=== PATIENT | female | born 1965 | race Caucasian/White ===

== ENCOUNTER 2018-06-18 05:48 | Day surgery (SDC) | payer OTHER ==
[2018-06-17 08:42] VITALS: BMI 34.4
[~2018-06-18] VITALS: Ht 165.1 cm; Wt 81.9 kg
[2018-06-18] VITALS (15 sets, daily range): BP systolic 103–131; BP diastolic 61–88; PULSE 72–94; RESP 14–20; Ht 165.1 cm; Wt 81.9 kg
[2018-06-18] MEDS ORDERED: SOD CHLORIDE 0.9% 1,000 ML IV SCH (06:00)
[2018-06-18] MEDS ORDERED: CEFAZOLIN 2 GM/50 ML (PMX) 50 ML IVPB SCH (06:00)
[2018-06-18] MEDS ORDERED: ACETAMINOPHEN 500 MG TAB PO ONE (06:00)
[2018-06-18] MEDS ORDERED: EPHEDrine SULFATE 50 MG/5 ML SYG ONE (07:00)
[2018-06-18] MEDS ORDERED: PROPOFOL 200 MG INJ ONE (07:00)
--- NOTE | 2018-06-18 07:01 | PREAC ---
Date/Time of Note Date/Time of Note DATE: 06/18/18 TIME: 07:00 Anesthesia Eval and Record Evaluation Time Pre-Procedure Interview DATE: 06/18/18 TIME: 07:00 Age 53 Sex female NPO: 8 hrs Preoperative diagnosis L breast CA Planned procedure L needle loc partial mastectomy & axillary dissection Past Medical History Past Medical History: Includes GI: Obesity Surgery & Anesthesia Issues No known issue Meds Anticoagulation: No Beta Roseanne within 24 hr: No Reason Beta Roseanne not given: Pt. not on B-Roseanne Current Medications Cefazolin Sodium/ Dextrose 50 ml @ 100 mls/hr PRE-OP IVPB ; Start 06/18/18 at 06:00 Sodium Chloride 1,000 ml @ 75 mls/hr [id number] IV ; Start 06/18/18 at 06:00; Stop 06/18/18 at 18:00 Meds reviewed: Yes Allergies Coded Allergies: No Known Allergy (Unverified , 06/17/18) Allergies Reviewed: Yes Labs/Studies Labs Reviewed: Reviewed by anesthesiologist test: Negative Studies: ECG (nsr), CXR (nad) Pre-procedure Exam Airway: Adequate mouth opening, Adequate thyromental dist Mallampati: Mallampati II Teeth: Normal Lung: Normal Heart: Normal ASA Physical Status ASA physical status: 2 Emergency: None Planned Anesthetic General/MAC: LMA Pre-operative Attestations Prior to commencing anesthesia and surgery, the patient was re-evaluated, there was verification of: *The patient's identity *The results of appropriate recent lab work and preoperative vital signs *The above evaluation not changing prior to induction *Anesthetic plan, risk benefits, alternative and complications discussed with patient/family; questions answered; patient/family understands, accepts and wishes to proceed. DIANNE TRAMMELL Jun 18, 2018 07:01
[2018-06-18] MEDS ORDERED: PARO10TA57 PO (07:04)
[2018-06-18] MEDS ORDERED: CALC500T11 PO (07:05)
[2018-06-18] MEDS ORDERED: VENL-42 PO (07:06)
[2018-06-18] MEDS ORDERED: PANT40TA4 PO (07:07)
[2018-06-18] MEDS ORDERED: [UNRECOGNIZED DRUG - CODE] PO (07:08)
[2018-06-18] MEDS ORDERED: LIDOCAINE 2% (SDV) 5 ML INJ ONE (07:25)
[2018-06-18] MEDS ORDERED: MIDAZOLAM 1 MG/ML 2 ML INJ ONE (07:25)
[2018-06-18] MEDS ORDERED: CEFAZOLIN 1 GM INJ ONE (07:25)
[2018-06-18] MEDS ORDERED: PROPOFOL 40 ML ONE (07:25)
[2018-06-18] MEDS ORDERED: FENTAnyl 50 MCG/ML VIAL ONE (07:26)
[2018-06-18] MEDS ORDERED: ONDANSETRON 4 MG INJ ONE (07:26)
[2018-06-18] MEDS ORDERED: FAMOTIDINE 20 MG INJ ONE (07:26)
[2018-06-18] MEDS ORDERED: ONDANSETRON 4 MG INJ IV PRN (07:30)
[2018-06-18] MEDS ORDERED: FENTAnyl 50 MCG/ML VIAL IV PRN ×2 (07:30)
[2018-06-18] MEDS ORDERED: OXYCODONE/ACETAMINOPHEN (5/325) TAB PO PRN ×2 (07:30)
[2018-06-18] MEDS ORDERED: morphine (1 MG/ML) 10ML SYRINGE IV PRN ×2 (07:30)
[2018-06-18] MEDS ORDERED: HYDROmorphONE 1 MG/5 ML IV SYRINGE IV PRN ×2 (07:30)
[2018-06-18] MEDS ORDERED: LABETALOL HCL 20MG INJ IV PRN (07:30)
[2018-06-18] MEDS ORDERED: ALBUTEROL 0.083% (NEB) 2.5 MG/3 ML AMP HHN PRN (07:30)
[2018-06-18] MEDS ORDERED: MEPERIDINE 25 MG INJ IV PRN (07:30)
[2018-06-18] MEDS ORDERED: DIPHENHYDRAMINE 50 MG INJ IV PRN (07:30)
[2018-06-18] MEDS ORDERED: PHENYLephrine 10 MG INJ ONE (08:09)
[2018-06-18] MEDS ORDERED: PROPOFOL 20 ML ONE (08:36)
--- NOTE | 2018-06-18 09:03 | SIPON ---
Date/Time of Note Date/Time of Note DATE: 06/18/18 TIME: 09:02 Operative Report Preoperative Diagnosis Invasive cancer left breast Postoperative Diagnosis Same Operation/Procedure Performed Left needle directed partial mastectomy and axillary dissection Surgeon see signature line legislative assistant None Anesthesia: general Estimated blood loss: 10 - 50 ml's Transfusion Required none Specimen Left partial mastectomy specimen and axillary contents Grafts/Implants none Complications none KAY HANLEY MD Jun 18, 2018 09:03
--- NOTE | 2018-06-18 09:04 | PAC ---
Date/Time of Note Date/Time of Note DATE: 06/18/18 TIME: 09:03 Post-Anesthesia Notes Post-Anesthesia Note Last documented vital signs Vital Signs Date Temp Pulse Resp B/P Pulse Ox O2 O2 Flow FiO2 Time (MAP) Delivery Rate 06/18/18 97.5 98.6 75 83 18 17 103/88 100 100 face 07:21 085 (93) 120 mask 6L 7 Activity: WNL Respiratory function: WNL Cardiovascular function: WNL Mental status: Baseline Pain reasonably controlled: Yes Hydration appropriate: Yes Nausea/Vomiting absent: Yes DIANNE TRAMMELL Jun 18, 2018 09:04
[2018-06-18] MEDS ORDERED: HYDROCODONE/APAP (7.5/325) TAB PO PRN (09:30)
--- NOTE | 2018-06-18 10:21 | OPR ---
DATE OF OPERATION: 06/18/2018 PREOPERATIVE DIAGNOSIS: Locally advanced left breast cancer. POSTOPERATIVE DIAGNOSIS: Locally advanced left breast cancer. OPERATION PERFORMED: Left needle-directed partial mastectomy and axillary dissection. ANESTHESIA: General. ANESTHESIOLOGIST: Nurse needle punch operator, Precious Leonard N.P. DATABASE ADMINISTRATOR: None. INDICATIONS FOR PROCEDURE: The patient is an unfortunate 53-year-old female who previously presented with a relatively large left breast mass that was very suspicious and a core biopsy confirmed invasi ve carcinoma. She also had a large left axillary lymph node, core biopsy of the lymph node confirmed metastatic disease. She was deemed a candidate for neoadjuvant chemotherapy. She underwent neoadju vant chemotherapy and had significant response based on post-treatment films that she was offered myrtle ast conservation surgery with left needle-directed partial mastectomy and axillary dissection. She c onsented and was scheduled for surgery. DESCRIPTION OF PROCEDURE: On the morning of surgery, the patient presented to [facility] where she underwent localization of the previous biopsy clip and the residual tumo r performed by attending radiologist, Dr. Kg Gonzalez. Subsequently, she was brought to the oper ating theater, placed under general anesthesia. The left breast and axillary region was prepped and draped in usual sterile fashion. Attention was directed to performing partial mastectomy. A localiz ation wire was in the upper outer quadrant of the breast. A curvilinear incision was made in this re gion. Subcutaneous tissue was dissected with cautery and skin edges were then elevated with skin gala ks. Wide circumferential dissection of the tissue associated with the wire then took place, taking g reat care to ensure adequate margin. The specimen was then elevated, transected, oriented, and sent for radiographic confirmation of capture of the clip. Capture was confirmed. Specimen was then sent for permanent pathologic analysis. However, on inspecting the specimen Dr. Grigsby decided that the m edial margin may be inadequate on final pathology. Therefore, additional medial margin tissue was ta guillermina using cautery. This specimen was elevated, transected. A suture was placed on the new medial ma rgin and tissue was sent for permanent pathologic analysis. Wound was irrigated. Minimal bleeding w as controlled with cautery. Due to the large size of the wound cavity, Dr. Grigsby made the decision t o bring a #10 flat Mati-Cho drain through the left mid axillary line into the wound cavity. It was cut to size and laid within the cavity. The drain was secured in place with 2-0 nylon suture in a standard fashion and the skin was then reapproximated with 4-0 Vicryl suture in subcuticular fashio n. Attention was then directed to performing partial mastectomy. Approximately 4 cm incision was made i n the left axillary hairline. Subcutaneous tissue was dissected with cautery down to the clavipector al fascia. Dissection proceeded posteriorly until latissimus dorsi muscle was identified throughout its course. Then anteriorly, the border of the pectoralis major muscle was identified as was the und erlying pectoralis minor muscle. Clavipectoral fascia was incised in this region as well. There was a large mass consistent with either residual disease or scar tissue related to the previous large ax illary lymph node. For this reason, axillary dissection was performed with blunt dissection along th e chest wall. The long thoracic nerve was identified and kept out of harm's way. More superiorly, t he axillary vein was identified and dissected from medial to lateral. The thoracodorsal neurovascula r bundle was then identified, dissected throughout its course and kept out of harm's way. Node beari ng tissue between the long thoracic nerve and thoracodorsal nerve was then resected using the LigaSur e device. Specimen was removed and sent for permanent pathologic analysis. The wound was then irrig ated. Minimal bleeding was controlled with cautery. A #10 Telugu Mati-Cho drain was brought th rough the left mid axillary line, cut to size and laid within the axilla. It was then secured in waldo ce with a 2-0 nylon suture in a standard fashion. The skin was reapproximated with skin tal. Th e Dermabond was then applied to both incisions. There should be no reference to skin tal. The p atient tolerated the procedure well. The estimated blood loss was 30 mL. There were no complication s. The patient was transported in stable condition to recovery room where circumferential compressio n dressing was applied. Dictated By: KAY GRIGSBY MD TL/NTS Conf#: [id number] DID#: [id number] CC: KAY GRIGSBY MD;*EndCC*
== END 2018-06-18 10:47 | disposition home or self-care (01) ==
LOC: SDS 05:48 → EDSEX 07:30 → SDS 10:47
PROVIDERS: ATTEND Surgery Surgical Oncology
DX: C50.912 Malignant neoplasm of unspecified site of left female breast (principal); D36.0 Benign neoplasm of lymph nodes; E66.9 Obesity, unspecified
CPT/HCPCS: 19301; 38525; 88307; 88341; 88342; J0690; J2250; J2370; J2405; J3010

== ENCOUNTER 2018-06-22 09:00 | Emergency (ER) | payer SELFPAY ==
[~2018-06-22] VITALS: Ht 160 cm; Wt 72.0 kg
[~2018-06-22 09:00] MED LIST: CALC500T11 PO; PANT40TA4 PO; PARO10TA57 PO; VENL-42 PO; [UNRECOGNIZED DRUG - CODE] PO
[2018-06-22 09:03] VITALS: BP 119/58; PULSE 74; RESP 18; Ht 160 cm; Wt 72.0 kg
== END 2018-06-22 10:14 | disposition left against medical advice (07) ==
LOC: FTE 09:00
DX: Z53.21 Procedure and treatment not carried out due to patient leaving prior to being seen by health care provider (principal)